=== PATIENT | female | born 1960 | race Caucasian/White ===

== ENCOUNTER 2017-06-26 16:40 | Inpatient (IN) | payer MEDICARE, OTHER ==
[2017-06-26] VITALS (9 sets, daily range): BP systolic 106–159; BP diastolic 57–85; PULSE 50–59; RESP 14–33; TEMP 97.9–98.3; O2SAT 96–98
[~2017-06-26] VITALS: Ht 170.2 cm; Wt 90.0 kg
[~2017-06-26 16:40] MED LIST: OXYC-395 PO; PROM1SUP7 RECTAL; SOMA350T PO; XANA1TAB2 PO
[2017-06-26] MEDS ORDERED: NITROGLYCERIN 0.4 MG SL 25 TABS/BTL SL PRN (17:30)
[2017-06-26] MEDS ORDERED: ENALAPRILAT 1.25 MG/ML VIAL IV PUSH PRN (17:30)
[2017-06-26] MEDS ORDERED: ONDANSETRON HCL 4 MG/2 ML VIAL IVP PRN (17:30)
[2017-06-26] MEDS ORDERED: CARISOPRODOL 350 MG TAB PO PRN (17:30)
[2017-06-26] MEDS ORDERED: NALOXONE HCL 0.4 MG/ML AMP IV PUSH PRN (17:30)
[2017-06-26] MEDS ORDERED: MAGNESIUM HYDROXIDE SUSP 30 ML CUP PO PRN (17:30)
[2017-06-26] MEDS ORDERED: METOPROLOL TARTRATE 5 MG/5 ML VIAL IV PUSH PRN (17:30)
[2017-06-26] MEDS ORDERED: SODIUM CHLORIDE 0.9% FLUSH 10 ML FLUSH IV FLUSH PRN (17:30)
--- NOTE | 2017-06-26 17:46 | HHI.HP ---
[facility] Primary Care Physician Non-Staff Admission Diagnosis Diagnoses: (1) Hypertension Diagnosis: Principal (2) Generalized anxiety disorder Diagnosis: Secondary (3) Hypertensive emergency Diagnosis: Principal (4) Pre-syncope Diagnosis: Secondary (5) Chest pain Diagnosis: Principal (6) Peripheral neuropathy Diagnosis: Secondary (7) Dyspnea Diagnosis: Secondary (8) Insomnia Diagnosis: Secondary Travel History International Travel<30 Days: No Contact w/Intl Traveler <30 Da: No Traveled to Known Affected Are: No History of Present Illness Mrs. Freeman is a 56 year old female. She came into the emergency department in [place], secondary to headache and dizziness. She has had hypertensive urgency in the past but says that symptoms this time or worsen included chest pain which is not typically part of her symptoms. She is found to have hypertensive emergency with blood pressures greater than 230 mmHg systolic. Presyncope is also reported as a symptom. Patient was treated in the ER and sent here for further investigation and workup of her chest pain. By the time I am seeing her her blood pressures are improved. She still has some dysphoria but does not state that she has headache, presyncope, or chest pain when seen. Other history includes peripheral neuropathy, type unspecified. She's tried Lyrica and gabapentin as an outpatient without benefit. This generally keeps her awake at night and disrupts his sleep that she does have. She feels that her chronic insomnia is contributory to her hypertensive episodes. Another complaint is that when she lays on her side she has graduated blood pressures and problems breathing. She has not been worked up for this. She is a smoker and we discussed the possible correlation between early COPD in her symptoms, however she could also have some heart disease at undiagnosed. No other complaints at this time. Review of Systems Constitutional: DENIES: Fatigue, Fever, Chills, Night Sweats Eyes: DENIES: Blurred vision, Diplopia, Eye inflammation Ears, nose, mouth, throat: DENIES: Hearing loss, Vertigo, Nasal discharge Respiratory: COMPLAINS OF: Shortness of breath, DENIES: Cough, Wheezing Cardiovascular: COMPLAINS OF: Chest pain, Syncope, Dyspnea on Exertion, DENIES : Palpitations Gastrointestinal: DENIES: Abdominal pain, Black stools, Bloody stools Genitourinary: DENIES: Dysmenorrhea, Dyspareunia, Sexual dysfunction Musculoskeletal: DENIES: Joint pain, Muscle aches, Stiffness, Joint Swelling Integumentary: DENIES: Abnormal pigmentation, Pruritus, Rash, Nail changes Hematologic/lymphatic: DENIES: Bruising, Lymphadenopathy Immunologic/allergic: DENIES: Eczema, Urticaria Neurologic: COMPLAINS OF: Paresthesias, DENIES: Abnormal gait, Headache, Seizures Psychiatric: DENIES: Anxiety, Confusion, Hallucinations Past Family Social History Past Medical History Hypertension Neuropathy NOS Gen. anxiety disorder Past Surgical History Cholecystectomy Reported Medications Reported Meds & Active Scripts Active Reported Phenergan Supp (Promethazine HCl) 25 Mg Supp 25 Mg RECTAL Q6H PRN Oxycodone (Oxycodone HCl) 10 Mg Tab 10 Mg PO Q6H PRN Xanax (Alprazolam) 1 Mg Tab 1 Mg PO Q6H PRN Soma (Carisoprodol) 350 Mg Tab 750 Mg PO HS PRN Allergies: Uncoded Allergies: ALL ANTIBIOTICS EXCEPT CIPRO (Allergy, Severe, HIVES/THROAT SWELLING, ) Family History Patient is adopted, family history unknown Social History No alcohol abuse No illicit drug abuse Patient smokes one half pack per day Physical Exam Vital Signs Vital Signs Date Time Temp Pulse Resp B/P (MAP) Pulse Ox O2 Delivery O2 Flow Rate FiO2 06/26/17 17:00 58 19 122/74 (90) 97 06/26/17 16:57 56 06/26/17 16:44 98.3 56 15 122/77 (92) Physical Exam GENERAL: NAD, A&Ox3 HEAD: Normocephalic. NECK: Supple, trachea midline. No lymphadenopathy. EYES: No scleral icterus. No injection or drainage. CARDIOVASCULAR: Regular rate and rhythm without murmurs, gallops, or rubs. RESPIRATORY: Breath sounds equal bilaterally. No accessory muscle use. GASTROINTESTINAL: Abdomen soft, non-tender, nondistended. MUSCULOSKELETAL: No cyanosis, or edema. SKIN: Warm and dry. NEURO: No focal neurological deficitis. Caprini VTE Risk Assessment Caprini VTE Risk Assessment: No/Low Risk (score <= 1) Caprini Risk Assessment Model Point Value = 1 Point Value = 2 Point Value = 3 Point Value = 5 Age 41-60 Minor surgery BMI > 25 kg/m2 Swollen legs Varicose veins or History of unexplained or recurrent spontaneous Oral contraceptives or hormone replacement Sepsis (< 1 month) Serious lung disease, including pneumonia (< 1 month) Abnormal pulmonary function Acute myocardial infarction Congestive heart failure (< 1 month) History of inflammatory bowel disease Medical patient at bed rest Age 61-74 Arthroscopic surgery Major open surgery (> 45 min) Laparoscopic surgery (> 45 min) Malignancy Confined to bed (> 72 hours) Immobilizing plaster cast Central venous access Age >= 75 History of VTE Family history of VTE Factor V Leiden Prothrombin [id number] Lupus anticoagulant Anticardiolipin antibodies Elevated serum homocysteine Heparin-induced thrombocytopenia Other congenital or acquired thrombophilia Stroke (< 1 month) Elective arthroplasty Hip, pelvis, or leg fracture Acute spinal cord injury (< 1 month) Prophylaxis Regimen Total Risk Factor Score Risk Level Prophylaxis Regimen 0-1 Low Early ambulation 2 Moderate Order ONE of the following: *Sequential Compression Device (SCD) *Heparin 5000 units SQ BID 3-4 Higher Order ONE of the following medications: *Heparin 5000 units SQ TID *Enoxaparin/Lovenox 40 mg SQ daily (WT < 150 kg, CrCl > 30 mL/min) *Enoxaparin/Lovenox 30 mg SQ daily (WT < 150 kg, CrCl > 10-29 mL/min) *Enoxaparin/Lovenox 30 mg SQ BID (WT < 150 kg, CrCl > 30 mL/min) AND/OR *Sequential Compression Device (SCD) 5 or more Highest Order ONE of the following medications: *Heparin 5000 units SQ TID (Preferred with Epidurals) *Enoxaparin/Lovenox 40 mg SQ daily (WT < 150 kg, CrCl > 30 mL/min) *Enoxaparin/Lovenox 30 mg SQ daily (WT < 150 kg, CrCl > 10-29 mL/min) *Enoxaparin/Lovenox 30 mg SQ BID (WT < 150 kg, CrCl > 30 mL/min) AND *Sequential Compression Device (SCD) Assessment and Plan Problem List: (1) Peripheral neuropathy ICD Code: G62.9 - Polyneuropathy, unspecified (2) Chest pain ICD Code: R07.9 - Chest pain, unspecified (3) Hypertensive emergency ICD Code: I16.1 - Hypertensive emergency (4) Pre-syncope ICD Code: R55 - Syncope and collapse (5) Dyspnea ICD Code: R06.00 - Dyspnea, unspecified (6) Hypertension ICD Code: I10 - Essential (primary) hypertension (7) Generalized anxiety disorder ICD Code: F41.1 - Generalized anxiety disorder (8) Insomnia ICD Code: G47.00 - Insomnia, unspecified Assessment and Plan 56-year-old female admitted secondary to hypertensive emergency and chest pain Chest pain Evaluate for ACS Follow cardiac enzymes Aspirin daily When necessary oxygen When necessary nitroglycerin Follow on telemetry Possible stress test in a.m. Hypertensive emergency Hypertension Improving Following ICU overnight Consider IV drip if needed IV Lopressor as needed IV enalapril as needed By mouth clonidine as needed Follow blood pressures Echocardiogram Carotid ultrasound Syncope/presyncope Likely related to hypertensive emergency Carotid ultrasound Follow on telemetry Peripheral neuropathy Lyrica and gabapentin have been of no benefit in the past Obtain autoimmune workup Screen thyroid Trial of prednisone Continue home dose of oxycodone Begin trazodone Insomnia Try Restoril tonight Begin trazodone daily at bedtime Gen. anxiety disorder Continue Xanax Hypothyroidism Check TSH, T3, T4 Recurrent positional dyspnea Obtain echocardiogram Patient counseled to quit smoking Muscle Spasms Continue PRN Soma Nicotine dependence Patient counseled to quit smoking DVT prophylaxis Lovenox Physician Certification 2 Midnight Certification Type: Admission for Inpatient Services Order for Inpatient Services The services are ordered in accordance with Medicare regulations or non- Medicare payer requirements, as applicable. In the case of services not specified as inpatient-only, they are appropriately provided as inpatient services in accordance with the 2-midnight benchmark. Estimated LOS (days): 2 days is the estimated time the patient will need to remain in the hospital, assuming treatment plan goals are met and no additional complications. Post-Hospital Plan: Home Iain Licea MD Jun 26, 2017 17:46
[2017-06-26] MEDS ORDERED: [UNRECOGNIZED DRUG - OTHER] PO (17:48)
[2017-06-26 18:38] LABS: TROPONIN I LESS THAN 0.02 NG/ML (0.02-0.05)
[2017-06-26 18:43] LABS: C-REACTIVE PROTEIN LESS THAN 0.29 MG/DL (0.00-0.30)
[2017-06-26 19:35] LABS: THYROXINE (T4) 8.9 MCG/DL (4.8-13.9)
[2017-06-26 19:44] LABS: FREE T3 3.36 PG/ML (2.18-3.98)
[2017-06-26] MEDS: ALPRAZolam 1 MG TAB PO PRN (19:50)
[2017-06-26] MEDS: traZODone HCL 50 MG TAB PO SCH (19:50)
[2017-06-26] MEDS: SODIUM CHLORIDE 0.9% FLUSH 10 ML FLUSH IV FLUSH SCH (19:50)
[2017-06-26] MEDS: predniSONE 20 MG TAB PO SCH (19:50)
[2017-06-26] MEDS: ENOXAPARIN SODIUM 40 MG/0.4 ML SYRINGE SQ SCH (19:54)
[2017-06-26 21:43] LABS: RHEUMATOID FACTOR SCREEN NEGATIVE (NEGATIVE)
[2017-06-26] MEDS: CARISOPRODOL 350 MG TAB PO PRN (22:39)
[2017-06-26] MEDS ORDERED: CHLORHEXIDINE GLUCONATE 2 % 1 PACK (2 CLOTHS)(extra cloths) TOPICAL PRN (23:15)
[2017-06-27] VITALS (19 sets, daily range): BP systolic 93–174; BP diastolic 57–92; PULSE 48–67; RESP 14–32; TEMP 98–98.8; O2SAT 93–98
[2017-06-27] MEDS: TEMAZEPAM 15 MG CAP PO PRN (00:55)
[2017-06-27] MEDS: CHLORHEXIDINE GLUCONATE 2 % 1 PACK (2 CLOTHS)(taper/protocol) TOPICAL SCH (00:58)
[2017-06-27] MEDS: ALPRAZolam 1 MG TAB PO PRN ×3 (03:19→23:00)
[2017-06-27 04:45] LABS: AUTOMATED NEUTROPHIL # 6.6 TH/MM3 (1.8-7.7); BASOPHIL % 0.2 % (0.0-2.0); EOSINOPHIL % 0.2 % (0.0-4.0); HEMOGLOBIN 14.2 GM/DL (11.6-15.3); LYMPH % 11.2 % (9.0-44.0); LYMPHOCYTE # 0.8 TH/MM3 (1.0-4.8); MEAN CELL VOLUME 88.2 FL (80.0-100.0); MEAN CORPUSCULAR HEMOGLOBIN 29.8 PG (27.0-34.0); MEAN CORPUSCULAR HGB CONC 33.8 % (32.0-36.0); MEAN PLATELET VOLUME 8.8 FL (7.0-11.0); MONO % 1.2 % (0.0-8.0); MONOCYTE # 0.1 TH/MM3 (0-0.9); NEUT % 87.2 % (16.0-70.0); PLATELET COUNT 136 TH/MM3 (150-450); RED BLOOD COUNT 4.77 MIL/MM3 (4.00-5.30); RED CELL DISTRIBUTION WIDTH 11.8 % (11.6-17.2); WHITE BLOOD COUNT 7.5 TH/MM3 (4.0-11.0)
[2017-06-27 04:49] LABS: CHLORIDE 104 MEQ/L (98-107); SODIUM (NA) 139 MEQ/L (136-145)
[2017-06-27 04:56] LABS: ALBUMIN 3.8 GM/DL (3.4-5.0); BICARBONATE 27.3 MEQ/L (21.0-32.0); BLOOD UREA NITROGEN 11 MG/DL (7-18); CALCIUM 8.7 MG/DL (8.5-10.1); GLUCOSE,RANDOM 178 MG/DL (74-106)
[2017-06-27 04:59] LABS: ALT (GPT) 34 U/L (10-53); AST (GOT) 14 U/L (15-37); CREATININE 0.84 MG/DL (0.50-1.00); GLOMERULAR FILTRATION RATE 71 ML/MIN (>89)
[2017-06-27 05:01] LABS: TOTAL BILIRUBIN ADULT 0.5 MG/DL (0.2-1.0); TOTAL PROTEIN 7.2 GM/DL (6.4-8.2)
[2017-06-27 05:02] LABS: ALKALINE PHOSPHATASE 53 U/L (45-117)
[2017-06-27 05:04] LABS: TROPONIN I LESS THAN 0.02 NG/ML (0.02-0.05)
[2017-06-27] MEDS: predniSONE 20 MG TAB PO SCH ×2 (08:47→21:15)
[2017-06-27] MEDS: SODIUM CHLORIDE 0.9% FLUSH 10 ML FLUSH IV FLUSH SCH ×2 (08:48→21:13)
--- NOTE | 2017-06-27 10:38 | RADRPT ---
EXAM DATE/TIME: 06/27/2017 09:41 [facility] COMPARISON: No previous studies available for comparison. INDICATIONS : Syncope. MEDICAL HISTORY : Hypercholesterolemia. Hypertension. Migriane. SURGICAL HISTORY : Cholecystectomy. section. Jaw surgery. Breast biopsy. ENCOUNTER: Initial ACUITY: 1 day PAIN SCORE: 0/10 LOCATION: Bilateral neck PEAK SYSTOLIC VELOCITIES (cm/sec): ICA/CCA RATIO: Right: 0.9 Left: 1.1 ICA: Right: 82 Left: 112 CCA: Right: 89 Left: 106 ECA: Right: 116 Left: 80 VERTEBRAL: Right: 42 antegrade Left: 57 antegrade Elevated flow velocities and ICA/CCA ratios have been found to correlate with increased degrees of vessel stenosis, calculated as percentage of diameter relative to a normal segment of distal ICA/CCA FINDINGS: RIGHT CAROTID: No significant stenosis is visualized. The waveforms are within normal limits. LEFT CAROTID: No significant stenosis is visualized. The waveforms are within normal limits. VERTEBRAL ARTERIES: Antegrade flow is seen in both vertebral arteries. MISCELLANEOUS: None. CONCLUSION: 1. No hemodynamically significant carotid artery stenosis identified. Iain Doyle MD on June 27, 2017 at 10:36 Board Certified Radiologist. This report was verified electronically.
[2017-06-27] MEDS ORDERED: PROMETHAZINE HCL 25 MG TAB PO PRN (14:15)
--- NOTE | 2017-06-27 14:16 | ECHRPT ---
Indication: SHORTNESS OF BREATH CONCLUSIONS Normal left ventricular size and wall thickness. The left ventricular systolic function is normal wi th an estimated ejection fraction in the range of 60-65%.Normal wall motion. Trace mild mitral valve regurgitation. Trace aortic valve regurgitation. There is mild tricuspid valve regurgitation. BP: 98 / 59 HR: 48 Rhythm: Sinus MEASUREMENTS (Male / Female) Normal Values Technical Quality:Fair 2D ECHO LV Diastolic Diameter PLAX 4.5 cm 4.2 - 5.9 / 3.9 - 5.3 cm LV Systolic Diameter PLAX 3.0 cm IVS Diastolic Thickness 1.0 cm 0.6 - 1.0 / 0.6 - 0.9 cm LVPW Diastolic Thickness 1.0 cm 0.6 - 1.0 / 0.6 - 0.9 cm LV Relative Wall Thickness 0.5 RV Internal Dim ED PLAX 2.6 cm LVOT Diameter 1.8 cm Aortic Root Diameter 3.3 cm LA Systolic Diameter LX 3.0 cm 3.0 - 4.0 / 2.7 - 3.8 cm M-MODE AV Cusp Separation MM 2.6 cm DOPPLER AV Peak Velocity 141.0 cm/s AV Peak Gradient 8.0 mmHg AV Mean Gradient 4.0 mmHg AV Velocity Time Integral 30.8 cm LVOT Peak Velocity 118.0 cm/s LVOT Peak Gradient 5.6 mmHg LVOT Velocity Time Integral 24.8 cm AV Area Cont Eq vti 2.0 cm AV Area Cont Eq pk 2.1 cm Mitral E Point Velocity 74.3 cm/s Mitral A Point Velocity 72.1 cm/s Mitral E to A Ratio 1.0 LV E' Lateral Velocity 12.3 cm/s Mitral E to LV E' Lateral Ratio 6.0 LV E' Septal Velocity 7.1 cm/s Mitral E to LV E' Septal Ratio 10.4 TR Peak Velocity 307.0 cm/s TR Peak Gradient 37.7 mmHg Right Atrial Pressure 10.0 mmHg Pulmonary Artery Systolic Pressu 47.7 mmHg Right Ventricular Systolic Press 47.7 mmHg PV Peak Velocity 51.1 cm/s PV Peak Gradient 1.0 mmHg FINDINGS LEFT VENTRICLE Normal left ventricular size and wall thickness. The left ventricular systolic function is normal wi th an estimated ejection fraction in the range of 60-65%.Normal wall motion. RIGHT VENTRICLE Normal right ventricular size and systolic function. LEFT ATRIUM The left atrial size is normal. RIGHT ATRIUM The right atrial size is normal. ATRIAL SEPTUM No atrial level shunt is demonstrated by color flow Doppler interrogation. AORTA The aortic root and proximal ascending aorta are not well visualized. MITRAL VALVE Trace mild mitral valve regurgitation. AORTIC VALVE Trace aortic valve regurgitation. TRICUSPID VALVE There is mild tricuspid valve regurgitation. PULMONARY VALVE No pulmonary valve regurgitation or stenosis. VESSELS The inferior vena cava was not well visualized. PERICARDIUM No pericardial effusion. Harley Lopes MD (Electronically Signed) Final Date:27 June 2017 14:15
--- NOTE | 2017-06-27 16:30 | RADRPT ---
EXAM DATE/TIME: 06/27/2017 15:28 [facility] COMPARISON: No previous studies available for comparison. INDICATIONS : Bilateral leg pain. MEDICAL HISTORY : Hypertension. SURGICAL HISTORY : section. Cholecystectomy. ENCOUNTER: Initial ACUITY: 1 day PAIN SCORE: 4/10 LOCATION: [facility] TECHNIQUE: Multiplanar multisequence MRI of the lumbar spine was performed without contrast. FINDINGS: Normal alignment of the lumbar spine. Conus medullaris is intact. No significant canal stenosis. Minimal disc bulge at L4-5. No other significant disc bulge or protrusion. CONCLUSION: 1. Mild disc bulge at L4-5. No canal or foraminal stenosis. Conus intact. Normal alignment. No acute fracture or subluxation. Andrea Willoughby MD on June 27, 2017 at 16:20 Board Certified Radiologist. This report was verified electronically.
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
--- NOTE | 2017-06-27 17:54 | HHI.PR ---
Subjective Remarks Workup is negative thus far. Thyroid within normal limits, autoimmune workup is within normal limits. Patient continues to have severe pain from her peripheral neuropathy. No benefit from steroids or TCA. Patient like to see a neurologist. I have imaged her lumbar spine and there is no evidence of nerve impingement. Echocardiogram in regards to her shortness of breath shows an exam within normal limits for her age. Blood pressures are improved. Chest pain workup was negative. Objective Vital Signs Date Time Temp Pulse Resp B/P (MAP) Pulse Ox O2 Delivery O2 Flow Rate FiO2 06/27/17 16:58 67 06/27/17 16:00 98.8 61 15 150/75 (100) 95 06/27/17 14:00 64 21 174/88 (116) 97 06/27/17 13:00 58 32 149/78 (101) 98 06/27/17 12:00 98.2 62 19 140/78 (98) 96 06/27/17 11:00 50 21 126/70 (88) 97 06/27/17 10:00 56 20 129/69 (89) 98 06/27/17 10:00 27 06/27/17 09:00 56 17 133/72 (92) 96 06/27/17 08:00 98.0 52 15 117/73 (88) 97 06/27/17 07:00 54 06/27/17 07:00 54 15 127/67 (87) 97 06/27/17 06:00 48 14 98/59 (72) 94 06/27/17 06:00 48 06/27/17 05:00 52 19 119/72 (88) 93 06/27/17 04:00 62 06/27/17 04:00 98.2 62 23 114/79 (91) 97 06/27/17 03:00 52 16 114/64 (81) 96 06/27/17 02:00 48 06/27/17 02:00 48 18 93/58 (70) 95 06/27/17 01:00 62 19 115/72 (86) 98 06/27/17 00:00 50 06/27/17 00:00 98.0 50 17 102/57 (72) 94 06/26/17 23:00 52 16 128/75 (92) 96 06/26/17 22:00 54 14 159/85 (109) 97 06/26/17 22:00 54 3/15/18 21:00 50 19 115/71 (86) 98 06/26/17 20:00 97.9 58 33 116/66 (83) 97 06/26/17 20:00 59 06/26/17 19:23 54 20 106/57 (73) 98 06/26/17 18:00 54 23 107/62 (77) 96 06/26/17 18:00 54 I/O 06/26/17 06/26/17 06/26/17 06/27/17 06/27/17 06/27/17 07:00 15:00 23:00 07:00 15:00 23:00 Intake Total 60 ml 620 ml Balance 60 ml 620 ml Intake Oral 60 ml 620 ml # Voids 3 Result Diagram: 06/27/17 0400 06/27/17 0400 Objective Remarks GENERAL: NAD, A&Ox3 HEAD: Normocephalic. NECK: Supple, trachea midline. No lymphadenopathy. EYES: No scleral icterus. No injection or drainage. CARDIOVASCULAR: Regular rate and rhythm without murmurs, gallops, or rubs. RESPIRATORY: Breath sounds equal bilaterally. No accessory muscle use. GASTROINTESTINAL: Abdomen soft, non-tender, nondistended. MUSCULOSKELETAL: No cyanosis, or edema. SKIN: Warm and dry. NEURO: No focal neurological deficitis. A/P Problem List: (1) Hypertensive emergency ICD Code: I16.1 - Hypertensive emergency (2) Pre-syncope ICD Code: R55 - Syncope and collapse (3) Hypertension ICD Code: I10 - Essential (primary) hypertension (4) Chest pain ICD Code: R07.9 - Chest pain, unspecified (5) Peripheral neuropathy ICD Code: G62.9 - Polyneuropathy, unspecified (6) Dyspnea ICD Code: R06.00 - Dyspnea, unspecified (7) Generalized anxiety disorder ICD Code: F41.1 - Generalized anxiety disorder (8) Insomnia ICD Code: G47.00 - Insomnia, unspecified Assessment and Plan 56-year-old female admitted secondary to hypertensive emergency and chest pain Chest pain Negative ACS evaluation Daily aspirin Etiology is likely related to hypertensive emergency Hypertensive emergency Hypertension Improving Continue to monitor for any recurrence Transfer out of ICU Echocardiogram shows no abnormality Carotid ultrasound within normal limits Follow blood pressures Continue clonidine and enalapril as needed Syncope/presyncope Likely related to hypertensive emergency Carotid ultrasound within normal limits Follow on telemetry Peripheral neuropathy Neurology consulted Negative lumbar spine MRI Lyrica and gabapentin have been of no benefit in the past Autoimmune workup is negative Screening of thyroid is negative Trial of prednisone not beneficial thus far Continue home dose of oxycodone Trazodone providing no benefit thus far Insomnia Continue Restoril and trazodone Gen. anxiety disorder Continue Xanax Hypothyroidism Check TSH, T3, T4 Recurrent positional dyspnea Echocardiogram within normal limits Likely related to undiagnosed COPD Patient counseled to quit smoking Muscle Spasms Continue PRN Soma Nicotine dependence Patient counseled to quit smoking DVT prophylaxis Iain Nolan MD Jun 27, 2017 17:54
[2017-06-27 17:55] LABS: BILIRUBIN, URINE NEG (NEG); BLOOD, URINE SMALL (NEG); GLUCOSE,URINE NEG (NEG); KETONE, URINE NEG (NEG); NITRITE,URINE NEG (NEG); PH, URINE 6.5 (5.0-8.5); URINE COLOR YELLOW (YELLW/STRAW); URINE LEUKOCYTE ESTERASE NEG (NEG)
[2017-06-27 18:01] LABS: SQUAMOUS EPITHELIAL CELL URINE 0-5 /hpf (0-5)
[2017-06-27] MEDS: traZODone HCL 50 MG TAB PO SCH (21:13)
[2017-06-27] MEDS: AMITRIPTYLINE HCL 25 MG TAB PO SCH (21:13)
[2017-06-27] MEDS: ENOXAPARIN SODIUM 40 MG/0.4 ML SYRINGE SQ SCH (21:15)
[2017-06-27] MEDS: CARISOPRODOL 350 MG TAB PO PRN (23:00)
[2017-06-27] MEDS: cloNIDine HCL 0.1 MG TAB PO PRN (23:00)
[2017-06-28] VITALS (7 sets, daily range): BP systolic 120–194; BP diastolic 83–104; PULSE 58–97; RESP 14–20; TEMP 96.6–98; O2SAT 96–99
[2017-06-28] MEDS: CHLORHEXIDINE GLUCONATE 2 % 1 PACK (2 CLOTHS)(taper/protocol) TOPICAL SCH ×2 (04:00→21:47)
[2017-06-28] MEDS: ALPRAZolam 1 MG TAB PO PRN ×2 (07:57→16:53)
[2017-06-28] MEDS: predniSONE 20 MG TAB PO SCH (09:00)
--- NOTE | 2017-06-28 09:17 | RADRPT ---
EXAM DATE/TIME: 06/28/2017 08:33 [facility] COMPARISON: No previous studies available for comparison. INDICATIONS : Multiple sclerosis. MEDICAL HISTORY : Hypertension. SURGICAL HISTORY : section. Cholecystectomy. ENCOUNTER: Initial ACUITY: 1 day PAIN SCORE: 0/10 LOCATION: Paraspinal TECHNIQUE: Multiplanar multisequence MRI of the thoracic spine was performed. FINDINGS: VERTEBRA: Normal vertebral body height. Homogeneous marrow signal. ALIGNMENT: Normal. CORD: Normal position and configuration. T1-T2: Normal. T2-T3: The thecal sac has a normal diameter. No evidence of disc bulge or protrusion. T3-T4: The thecal sac has a normal diameter. No evidence of disc bulge or protrusion. T4-T5: The thecal sac has a normal diameter. No evidence of disc bulge or protrusion. T5-T6: The thecal sac has a normal diameter. No evidence of disc bulge or protrusion. T6-T7: The thecal sac has a normal diameter. No evidence of disc bulge or protrusion. T7-T8: The thecal sac has a normal diameter. No evidence of disc bulge or protrusion. T8-T9: The thecal sac has a normal diameter. No evidence of disc bulge or protrusion. T9-T10: The thecal sac has a normal diameter. No evidence of disc bulge or protrusion. T10-T11: The thecal sac has a normal diameter. No evidence of disc bulge or protrusion. T11-T12: The thecal sac has a normal diameter. No evidence of disc bulge or protrusion. T12-L1: The thecal sac has a normal diameter. No evidence of disc bulge or protrusion. CONCLUSION: No evidence of degenerative change. No abnormal lesions identified within the spinal cord. Khloe Howell MD on June 28, 2017 at 9:10 Board Certified Radiologist. This report was verified electronically.
--- NOTE | 2017-06-28 09:39 | RADRPT ---
EXAM DATE/TIME: 06/28/2017 08:33 [facility] COMPARISON: No previous studies available for comparison. INDICATIONS : Multiple sclerosis. MEDICAL HISTORY : Hypertension. SURGICAL HISTORY : Cholecystectomy. section. ENCOUNTER: Initial ACUITY: 1 day PAIN SCORE: 0/10 LOCATION: Paraspinal TECHNIQUE: Multiplanar, multisequence MRI examination of the cervical spine was performed. FINDINGS: VERTEBRAE: Normal vertebral body height. Homogeneous marrow signal. ALIGNMENT: No evidence of subluxation. CORD: Normal configuration and signal. POST FOSSA: The cerebellar tonsils are normal in position. C2-C3: The thecal sac has a normal configuration. There is no evidence of disc herniation or spinal canal s tenosis. The neural foramina are patent bilaterally. C3-C4: Minimal posterior disc osteophyte complex. Mild right-sided facet degenerative change. C4-C5: Minimal posterior disc osteophyte complex and uncovertebral joint hypertrophy. Mild right-sided facet degenerative change. No significant spinal canal or neuroforaminal narrowing. C5-C6: Posterior disc osteophyte complex and moderate uncovertebral joint hypertrophy. Mild bilateral neurof oraminal narrowing. Minimal narrowing of the spinal canal in AP dimension. C6-C7: Small broad-based posterior disc bulge. Degenerative hypertrophy. Minimal neuroforaminal narrowing. N o significant narrowing of the spinal canal. C7-T1: The thecal sac has a normal configuration. There is no evidence of disc herniation or spinal canal s tenosis. The neural foramina are patent bilaterally. CONCLUSION: #1. No cord abnormality seen to suggest multiple sclerosis. #2. Degenerative change is seen from C5-C7 resulting in mild narrowing of the spinal canal and varyin g degrees of neural foraminal narrowing.. Khloe Howell MD on June 28, 2017 at 9:34 Board Certified Radiologist. This report was verified electronically.
--- NOTE | 2017-06-28 09:43 | RADRPT ---
EXAM DATE/TIME: 06/28/2017 09:23 [facility] COMPARISON: No previous studies available for comparison. INDICATIONS : Multiple sclerosis. MEDICAL HISTORY : Hypertension. SURGICAL HISTORY : Cholecystectomy. section. ENCOUNTER: Initial ACUITY: 1 day PAIN SCORE: 0/10 LOCATION: cranial TECHNIQUE: Multiplanar, multisequence MRI of the brain was performed without contrast. FINDINGS: CEREBRUM: The ventricles are normal for age. No evidence of midline shift, mass lesion, hemorrhage or acute in farction. No extraaxial fluid collections are seen. The pituitary gland and suprasellar cistern are normal in configuration. WHITE MATTER: No significant signal abnormalities are seen in the white matter. There are 2 foci of increased T2 si gnal identified within the left parietal lobe on series 4 image 15. These are nonspecific and locatio n and distribution. POSTERIOR FOSSA: The cerebellum and brainstem are intact. The 4th ventricle is midline. The cerebellopontine angle is unremarkable. The cerebellar tonsils are normal in position. DIFFUSION IMAGING: No focal areas of restricted diffusion are seen. No evidence of acute infarction. EXTRACRANIAL: The visualized portions of the orbits and paranasal sinuses are unremarkable. CONCLUSION: Essentially unremarkable exam. 2 foci of increased T2 signal identified within the left parietal lobe are nonspecific in distribution and location.. Khloe Howell MD on June 28, 2017 at 9:38 Board Certified Radiologist. This report was verified electronically.
[2017-06-28] MEDS: SODIUM CHLORIDE 0.9% FLUSH 10 ML FLUSH IV FLUSH SCH ×2 (09:55→21:46)
[2017-06-28 10:44] LABS: AUTOMATED NEUTROPHIL # 3.9 TH/MM3 (1.8-7.7); BASOPHIL % 0.2 % (0.0-2.0); EOSINOPHIL # 0.1 TH/MM3 (0-0.4); EOSINOPHIL % 1.5 % (0.0-4.0); HEMOGLOBIN 12.9 GM/DL (11.6-15.3); LYMPH % 35.1 % (9.0-44.0); LYMPHOCYTE # 2.4 TH/MM3 (1.0-4.8); MEAN CORPUSCULAR HEMOGLOBIN 29.7 PG (27.0-34.0); MEAN CORPUSCULAR HGB CONC 33.8 % (32.0-36.0); MEAN PLATELET VOLUME 8.8 FL (7.0-11.0); MONO % 5.2 % (0.0-8.0); MONOCYTE # 0.4 TH/MM3 (0-0.9); PLATELET COUNT 114 TH/MM3 (150-450); RED BLOOD COUNT 4.32 MIL/MM3 (4.00-5.30); RED CELL DISTRIBUTION WIDTH 11.8 % (11.6-17.2); WHITE BLOOD COUNT 6.8 TH/MM3 (4.0-11.0)
[2017-06-28 11:11] LABS: CHLORIDE 104 MEQ/L (98-107); SODIUM (NA) 140 MEQ/L (136-145)
[2017-06-28 11:14] LABS: CALCIUM 8.5 MG/DL (8.5-10.1)
[2017-06-28 11:15] LABS: ALBUMIN 3.3 GM/DL (3.4-5.0); BLOOD UREA NITROGEN 11 MG/DL (7-18); GLUCOSE,RANDOM 125 MG/DL (74-106)
[2017-06-28 11:18] LABS: ALT (GPT) 30 U/L (10-53); AST (GOT) 15 U/L (15-37); CREATININE 0.75 MG/DL (0.50-1.00); GLOMERULAR FILTRATION RATE 81 ML/MIN (>89)
[2017-06-28 11:19] LABS: TOTAL BILIRUBIN ADULT 0.3 MG/DL (0.2-1.0); TOTAL PROTEIN 6.3 GM/DL (6.4-8.2)
[2017-06-28 11:21] LABS: ALKALINE PHOSPHATASE 45 U/L (45-117)
[2017-06-28] MEDS: cloNIDine HCL 0.1 MG TAB PO PRN ×2 (11:23→21:47)
[2017-06-28] MEDS ORDERED: NITROGLYCERIN 0.4 MG SL 25 TABS/BTL SL PRN (11:30)
[2017-06-28 11:44] LABS: TROPONIN I LESS THAN 0.02 NG/ML (0.02-0.05)
--- NOTE | 2017-06-28 13:01 | HHI.PR ---
Subjective Remarks Patient has reported recurrence of severe chest pain this morning. She said the chest pain is greater than previously. Imaging of the brain, cervical spine , and thoracic spine showed no abnormalities to explain the patient's neuropathy. She has started Elavil and is having possible benefit thus far. B12 is within normal limits. Hemoglobin A1c pending. Objective Vital Signs Date Time Temp Pulse Resp B/P (MAP) Pulse Ox O2 Delivery O2 Flow Rate FiO2 06/28/17 11:54 18 06/28/17 11:02 18 06/28/17 08:00 97.1 58 16 120/84 (96) 97 06/28/17 04:00 97.5 64 20 125/83 (97) 98 06/28/17 00:00 97.5 63 20 189/96 (127) 99 06/27/17 23:00 62 06/27/17 20:00 98.1 65 20 166/92 (116) 98 06/27/17 16:58 67 06/27/17 16:00 98.8 61 15 150/75 (100) 95 06/27/17 14:00 64 21 174/88 (116) 97 06/27/17 13:00 58 32 149/78 (101) 98 I/O 06/27/17 06/27/17 06/27/17 06/28/17 06/28/17 06/28/17 07:00 15:00 23:00 07:00 15:00 23:00 Intake Total 620 ml 500 ml 230 ml Output Total 650 ml Balance 620 ml -650 ml 500 ml 230 ml Intake Oral 620 ml 500 ml 230 ml Output Urine Total 650 ml # Voids 3 1 # Bowel Movements 0 Result Diagram: 06/28/17 1020 06/28/17 1020 Objective Remarks GENERAL: NAD, A&Ox3 HEAD: Normocephalic. NECK: Supple, trachea midline. No lymphadenopathy. EYES: No scleral icterus. No injection or drainage. CARDIOVASCULAR: Regular rate and rhythm without murmurs, gallops, or rubs. RESPIRATORY: Breath sounds equal bilaterally. No accessory muscle use. GASTROINTESTINAL: Abdomen soft, non-tender, nondistended. MUSCULOSKELETAL: No cyanosis, or edema. SKIN: Warm and dry. NEURO: No focal neurological deficitis. A/P Problem List: (1) Hypertensive emergency ICD Code: I16.1 - Hypertensive emergency Status: Acute (2) Pre-syncope ICD Code: R55 - Syncope and collapse (3) Hypertension ICD Code: I10 - Essential (primary) hypertension (4) Chest pain ICD Code: R07.9 - Chest pain, unspecified (5) Peripheral neuropathy ICD Code: G62.9 - Polyneuropathy, unspecified Status: Chronic (6) Dyspnea ICD Code: R06.00 - Dyspnea, unspecified (7) Generalized anxiety disorder ICD Code: F41.1 - Generalized anxiety disorder Status: Chronic (8) Insomnia ICD Code: G47.00 - Insomnia, unspecified Status: Chronic Assessment and Plan 56-year-old female admitted secondary to hypertensive emergency and chest pain Onset of chest pain today. Neurologic workup negative thus far. Some benefit is seen with Elavil. Hemoglobin A1c pending. Severe chest pain reported this morning. Chest pain Evaluate for ACS Follow cardiac enzymes Aspirin daily When necessary oxygen When necessary morphine for pain. When necessary nitroglycerin Follow on telemetry Plan for stress test tomorrow after 12 hours of monitoring of cardiac enzymes. Hypertensive emergency Hypertension Improving Continue to monitor for any recurrence Transfer out of ICU Echocardiogram shows no abnormality Carotid ultrasound within normal limits Follow blood pressures Continue clonidine and enalapril as needed Syncope/presyncope Likely related to hypertensive emergency Carotid ultrasound within normal limits Follow on telemetry Peripheral neuropathy Neurology consulted Negative lumbar spine MRI Lyrica and gabapentin have been of no benefit in the past Autoimmune workup is negative Screening of thyroid is negative Trial of prednisone not beneficial thus far Continue home dose of oxycodone Trazodone providing no benefit thus far Insomnia Continue Restoril and trazodone Gen. anxiety disorder Continue Xanax Hypothyroidism Check TSH, T3, T4 Recurrent positional dyspnea Echocardiogram within normal limits Likely related to undiagnosed COPD Patient counseled to quit smoking Muscle Spasms Continue PRN Soma Nicotine dependence Patient counseled to quit smoking DVT prophylaxis Iain Nolan MD Jun 28, 2017 13:01
[2017-06-28 13:52] LABS: HEMOGLOBIN A1C 5.2 % (4.3-6.0)
--- NOTE | 2017-06-28 16:54 | EKG ---
Date Performed: 06/28/2017 Time Performed: 11:32:55 PTAGE: 56 years EKG: SINUS BRADYCARDIA BORDERLINE ECG NO PREVIOUS TRACING DOCTOR: Galol Dorsey Interpretating Date/Time 06/28/2017 16:52:59
[2017-06-28] MEDS ORDERED: POTASSIUM CHLORIDE 10 MEQ CONTROLLED RELEASE TAB PO ONE (17:00)
[2017-06-28] MEDS: ENOXAPARIN SODIUM 40 MG/0.4 ML SYRINGE SQ SCH (21:45)
[2017-06-28] MEDS: AMITRIPTYLINE HCL 25 MG TAB PO SCH (21:46)
[2017-06-28] MEDS: TEMAZEPAM 15 MG CAP PO PRN (21:46)
[2017-06-28] MEDS: CARISOPRODOL 350 MG TAB PO PRN (21:46)
[2017-06-29 00:06] VITALS: BP 123/81; PULSE 55; RESP 16; TEMP 97.6; O2SAT 99
[2017-06-29 03:10] VITALS: BP 128/76; PULSE 51; RESP 18; TEMP 97.8; O2SAT 96
[2017-06-29] MEDS: ALPRAZolam 1 MG TAB PO PRN (06:07)
[2017-06-29 08:00] VITALS: BP 144/93; PULSE 54; PULSE 61; RESP 16; TEMP 97.4; O2SAT 98
[2017-06-29 10:36] VITALS: BP 172/98
[2017-06-29] MEDS: SODIUM CHLORIDE 0.9% FLUSH 10 ML FLUSH IV FLUSH SCH (10:39)
[2017-06-29] MEDS ORDERED: VENTAER INH (11:50)
[2017-06-29] MEDS ORDERED: AMIT25TA9 PO (11:50)
[2017-06-29] MEDS ORDERED: CLON.1 PO (11:50)
[2017-06-29] MEDS ORDERED: REST15CA PO (11:50)
[2017-06-29] MEDS ORDERED: REGADENOSON INJ 0.4 MG/5 ML SYR IV ONE (11:58)
--- NOTE | 2017-06-29 12:43 | EKG ---
Date Performed: 06/28/2017 Time Performed: 17:22:24 PTAGE: 56 years EKG: SINUS BRADYCARDIA BORDERLINE ECG Since PREVIOUS TRACING , no significant change noted PREVIOUS TRACIN06/28/2017 11.32 DOCTOR: Gallo Dorsey Interpretating Date/Time 06/29/2017 12:41:40
--- NOTE | 2017-06-29 12:48 | RADRPT ---
EXAM DATE/TIME: 06/29/2017 11:18 [facility] COMPARISON: No previous studies available for comparison. INDICATIONS : Hypertensive emergency with chest pain and pre syncope. Angina. DOSE: 27.2 mCi Tc99m Myoview at stress. 8.5 mCi Tc99m Myoview at rest. 0.4 mg Lexiscan STRESS SYMPTOMS: Nausea and dyspnea. EJECTION FRACTION: 68% MEDICAL HISTORY : Hypercholesterolemia. Hypertension. SURGICAL HISTORY : Cholecystectomy. ENCOUNTER: Initial ACUITY: 1 day PAIN SCALE: 4/10 LOCATION: chest TECHNIQUE: The patient underwent pharmacologic stress with infusion of prescribed dose. Continuous ECG tracing was monitored during stress. Gated SPECT imaging was performed after stress and conventional SPECT i maging was performed at rest. The examination was performed on a SPECT/CT scanner, both attenuation and non-corrected datasets were reviewed. FINDINGS: DISTRIBUTION: The maximum perfused segment at stress is in the inferior wall. PERFUSION STUDY: The pattern of perfusion at stress is within normal limits. GATED STUDY: There is intact wall motion and thickening without hypokinetic or dyskinetic segments. CONCLUSION: 1. No reversible perfusion defect to suggest stress induced myocardial ischemia. RISK CATEGORY: Low (<1% Annual Mortality Rate) Iain Doyle MD on June 29, 2017 at 12:45 Board Certified Radiologist. This report was verified electronically.
--- NOTE | 2017-06-29 13:04 | TR ---
Date Performed: 06/29/2017 Time Performed: 11:43:47 DOCTOR: Gallo Dorsey DRUG LIST: CLINICAL HISTORY: REASON FOR TEST: REASON FOR ENDING: OBSERVATION: CONCLUSION: Lexiscan stress test was performed under standard four minute protocol. Radionucl[place] e was injected one minute prior to ending the test. No electrocardiographic abormalities were present to suggest ischemia. Nuclear imaging and interpretation are pending. COMMENTS:
--- NOTE | 2017-06-29 15:06 | HHI.DS ---
Discharge Summary Admission Date Jun 26, 2017 at 17:26 Discharge Date: Jun 29, 2017 Admitting Diagnosis (1) Peripheral neuropathy ICD Code: G62.9 - Polyneuropathy, unspecified Diagnosis: Principal Status: Chronic (2) Chest pain ICD Code: R07.9 - Chest pain, unspecified Diagnosis: Principal (3) Hypertensive emergency ICD Code: I16.1 - Hypertensive emergency Diagnosis: Principal Status: Acute (4) Pre-syncope ICD Code: R55 - Syncope and collapse Diagnosis: Principal (5) Dyspnea ICD Code: R06.00 - Dyspnea, unspecified Diagnosis: Principal (6) Hypertension ICD Code: I10 - Essential (primary) hypertension Diagnosis: Principal (7) Generalized anxiety disorder ICD Code: F41.1 - Generalized anxiety disorder Diagnosis: Principal Status: Chronic (8) Insomnia ICD Code: G47.00 - Insomnia, unspecified Diagnosis: Principal Status: Chronic Procedures Mrs. Freeman is a 56-year-old female. Her primary reason for coming in was chest pain. Chest pain was suspected to be related to hypertensive urgency. Patient' s blood pressures are greater than 230 mmHg systolic. Brief History - From Admission Mrs. Freeman is a 56 year old female. She came [place] emergency department [place], secondary to headache and dizziness. She has had hypertensive urgency in the past but says that symptoms this time or worsen included chest pain which is not typically part of her symptoms. She is found to have hypertensive emergency with blood pressures greater than 230 mmHg systolic. Presyncope is also reported as a symptom. Patient was treated in the ER and sent here for further investigation and workup of her chest pain. By the time I am seeing her her blood pressures are improved. She still has some dysphoria but does not state that she has headache, presyncope, or chest pain when seen. Other history includes peripheral neuropathy, type unspecified. She's tried Lyrica and gabapentin as an outpatient without benefit. This generally keeps her awake at night and disrupts his sleep that she does have. She feels that her chronic insomnia is contributory to her hypertensive episodes. Another complaint is that when she lays on her side she has graduated blood pressures and problems breathing. She has not been worked up for this. She is a smoker and we discussed the possible correlation between early COPD in her symptoms, however she could also have some heart disease at undiagnosed. No other complaints at this time. CBC/BMP: 06/28/17 1020 06/28/17 1020 Significant Findings Laboratory Tests Test 06/26/17 17:45 06/26/17 17:55 06/26/17 23:30 06/27/17 04:00 Troponin I LESS THAN 0.02 NG/ML LESS THAN 0.02 NG/ML LESS THAN 0.02 NG/ML Platelet Count 136 TH/MM3 (150-450) Neutrophils (%) (Auto) 87.2 % (16.0-70.0) Lymphocytes # (Auto) 0.8 TH/MM3 (1.0-4.8) Random Glucose 178 MG/DL (74-106) Aspartate Amino Transf (AST/SGOT) 14 U/L (15-37) Estimat Glomerular Filtration Rate 71 ML/MIN (>89) Test 06/27/17 05:55 06/27/17 17:15 06/28/17 10:20 06/28/17 17:20 Urine Occult Blood SMALL (NEG) Platelet Count 114 TH/MM3 (150-450) Random Glucose 125 MG/DL (74-106) Total Protein 6.3 GM/DL (6.4-8.2) Albumin 3.3 GM/DL (3.4-5.0) Potassium Level 3.3 MEQ/L (3.5-5.1) Estimat Glomerular Filtration Rate 81 ML/MIN (>89) Troponin I LESS THAN 0.02 NG/ML LESS THAN 0.02 NG/ML Test 06/29/17 05:50 Troponin I LESS THAN 0.02 NG/ML Hospital Course Mrs. Freeman is a 56 year old female. She came in secondary to chest pain. Chest pain was found to be related to hypertensive emergency. Blood pressures are greater than 230 mmHg systolic. Blood pressures were dressed the patient blamed her blood pressures on pain. She has persistent lower extremity peripheral neuropathy. She is negative for diabetes. Neurology was consulted. Investigation of her condition showed no abnormalities of the brain or spine. As an outpatient she had tried gabapentin and Lyrica. Neurology has initiated Elavil this has helped patient thus far. She had recurrence of hypertensive urgency and chest pain which was severe on the following day and stress test was obtained today which is negative. At this time she'll be discharged with clonidine and Elavil. An Albuterol inhaler has been admitted for nocturnal dyspnea which is likely related to COPD. Patient is recommended to quit smoking. Discharge home today. Pt Condition on Discharge: Stable Discharge Disposition: Discharge Home Discharge Time: <= 30 minutes Discharge Instructions Follow up Referrals: Neurology - As Per Protocol PCP Follow-up - 2 Weeks New Medications: Albuterol 18 GM Inh (Ventolin Hfa 18 GM Inh) 90 Mcg/Act Aer 2 PUFF INH Q4H PRN for SHORTNESS OF BREATH, #1 INHALER 0 Refills Amitriptyline (Amitriptyline) 25 Mg Tab 25 MG PO HS for Peripheral Neuropathy, #30 TAB Clonidine (Catapres) 0.1 Mg Tab 0.1 MG PO Q6H PRN for Systolic BP Greater than 160, #60 TAB Temazepam (Restoril) 15 Mg Cap 15 MG PO HS PRN for INSOMNIA, #15 CAP Continued Medications: Alprazolam (Xanax) 1 Mg Tab 1 MG PO Q6H PRN for ANXIETY, TAB 0 Refills Carisoprodol (Soma) 350 Mg Tab 750 MG PO HS PRN for PAIN, TAB 0 Refills Oxycodone (Oxycodone) 10 Mg Tab 10 MG PO Q6H PRN for PAIN, TAB 0 Refills Promethazine Supp (Phenergan Supp) 25 Mg Supp 25 MG RECTAL Q6H PRN for NAUSEA OR VOMITING, SUPP 0 Refills [nutraroid] () 175 MG PO DAILY Iain Licea MD Jun 29, 2017 15:06
== END 2017-06-29 16:39 | disposition home or self-care (01) | DRG 305 ==
LOC: PHEDDLT 16:40 → PHICU 16:41 → OBSVTOIN 17:26 → PH3B 06-27 18:26
PROVIDERS: ADMIT Hospitalist; ATTEND Hospitalist
DX: I16.1 Hypertensive emergency (principal); G62.9 Polyneuropathy, unspecified; R55 Syncope and collapse; I10 Essential (primary) hypertension; R07.9 Chest pain, unspecified; F51.04 Psychophysiologic insomnia; J44.9 Chronic obstructive pulmonary disease, unspecified; E03.9 Hypothyroidism, unspecified; M62.838 Other muscle spasm; F41.1 Generalized anxiety disorder; F17.210 Nicotine dependence, cigarettes, uncomplicated; Z88.1 Allergy status to other antibiotic agents
CPT/HCPCS: 70551; 71046; 72141; 72146; 72148; 78452; 80048; 80053; 81001; 82550; 82607; 83036; 83735; 83880; 84436; 84443; 84481; 84484; 85025; 85379; 85610; 85652; 85730; 86038; 86140; 86430; 87641; 93005; 93017; 93306; 93880; 99285; A9502; J2785; J7512; Q0169